=== PATIENT | female | born 1960 | race Caucasian/White ===

== ENCOUNTER 2024-09-01 16:26 | Emergency (ER) | payer MEDICAID, SELFPAY ==
[2024-09-01 16:27] VITALS: BMI 45.4
[2024-09-01 16:46] VITALS: BP 113/78; PULSE 93; RESP 18; TEMP 36.7; O2SAT 94
--- NOTE | 2024-09-01 17:26 | XR_ITS ---
Examination: PA lateral chest 2 views Technique: Upright PA lateral chest 2 views Exam date and time: September 01, 2024 1742 hrs. Indications: Intermittent chest pain shortness of breath today. Findings: Normal heart size Ectatic thoracic aorta On the lateral view there is obscuration detail posterior right hemidiaphragm consistent with early pneumonia No pulmonary edema Impression: Early pneumonia posterior basal segment right lower lobe
--- NOTE | 2024-09-01 17:26 | PD.EDRME ---
Rapid Medical Screening Exam RME Arrival date/time: 09/01/24 16:26 This is a 63-year-old female sent over by her PCP for evaluation for complaints of generalized fatigue shortness of breath and abnormal pulse ox. Reports symptoms for 1 week. I have greeted and performed a focused initial assessment of this patient. Initial appropriate labs ordered at this time. A comprehensive ED assessment and evaluation of the patient and analysis of all test and completion of medical decision making process will be conducted by additional ED provider. Chief Complaint: Shortness of Breath/Dyspnea Time Seen by Provider: 09/01/24 17:11 Vital signs: Vital Signs Temperature 98.0 F 09/01/24 16:46 Pulse Rate 93 09/01/24 16:46 Respiratory Rate 18 09/01/24 16:46 Blood Pressure 113/78 09/01/24 16:46 Pulse Oximetry (%) 94 L 09/01/24 16:46 Oxygen Delivery Method Room Air 09/01/24 16:46
[2024-09-01 18:22] LABS: Basophils # (Auto) 0.1 Thou/mm3 (0.0-0.2); Basophils % (Auto) 1 % (0-2.5); Eosinophils # (Auto) 0.3 Thou/mm3 (0.0-0.5); Eosinophils % (Auto) 3 % (0-10); Hematocrit 41.1 % (36.0-46.0); Hemoglobin 13.5 g/dL (12.0-16.0); Immature Granulocytes % (Auto) 0 % (0-0); Immature Granulocytes Auto 0.02 Thou/mm3 (0.00-0.00); Lymphocytes # (Auto) 2.2 Thou/mm3 (1.0-4.8); Lymphocytes % (Auto) 26 % (10-50); Mean Corpuscular HGB Conc 32.8 g/dl (31.0-37.0); Mean Corpuscular Hemoglobin 28.1 pg (25.0-35.0); Mean Corpuscular Volume 85 fL (80-100); Monocytes # (Auto) 0.4 Thou/mm3 (0.0-0.8); Monocytes % (Auto) 5 % (0-12); Neutrophils # (Auto) 5.4 Thou/mm3 (1.8-7.7); Neutrophils % (Auto) 64 % (37-80); Nucleated Red Blood Cell % 0 /100 WBC (0); Platelet Count 286 Thou/mm3 (140-440); RDW Standard Deviation 48.9 fL (36.4-46.3); Red Blood Count 4.81 Miln/mm3 (4.00-5.20); White Blood Count 8.4 Thou/mm3 (3.6-11.0)
[2024-09-01 18:44] LABS: B-Type Natriuretic Peptide < 20 pg/mL (0-100)
[2024-09-01 18:56] LABS: Alanine Aminotransferase 9 U/L (10-49); Albumin, Serum 4.7 gm/dL (3.4-4.8); Albumin/Globulin Ratio 1.5 (1.2-2.2); Alkaline Phosphatase 106 U/L (46-116); Anion Gap 11 (7-16); Aspartate Amino Transferase 15 U/L (0-34); BUN/Creatinine Ratio 25 Ratio (12-20); Bilirubin,Total 0.4 mg/dL (0.3-1.2); Blood Urea Nitrogen 28 mg/dL (9-23); Carbon Dioxide 20.4 mMol/L (20.0-31.0); Chloride 105 mMol/L (98-107); Creatinine (Component) 1.1 mg/dL (0.6-1.3); Estimated Creatinine Clearance 68.3 mL/min (>60); Globulin 3.2 gm/dL (2.3-3.5); Glucose 185 mg/dL (74-106); Lipase 57 U/L (12-53); Osmolality,Calculated 282 (275-295); Potassium 3.9 mMol/L (3.4-5.1); Sodium 136 mMol/L (136-145); Total Protein 7.9 gm/dL (5.7-8.2); Troponin I < 0.020 ng/mL (0.0-0.045); eGFR 56 See Note
[2024-09-01 19:26] LABS: Collection Type, Urine Clean Catch
[2024-09-01 19:58] LABS: Bilirubin,Urine Negative (Negative); Blood,Urine Negative (Negative); Clarity,Urine Clear (Clear/Hazy); Color,Urine Lt-Yellow (Lt Yel-Yel); Glucose, Urine 4+ (Negative); Ketones,Urine Negative (Negative); Leukocyte Esterase,Urine Positive (Negative); Nitrite,Urine Negative (Negative); Protein,Urine Negative (Neg - Trace); RBC,Urine 3 /hpf (0-3); Squamous Epithelial Cell,Urine 1 /hpf (0-5); Urobilinogen,Urine Negative mg/dL (0.0-1.0); WBC,Urine 15 /hpf (0-5)
--- NOTE | 2024-09-01 20:20 | EDNOTE_ITS ---
ED SOB =RME/HPI General Chief Complaint: Shortness of Breath/Dyspnea Stated Complaint: SENT BY PCP SOB WITH ACTIVITY SP02 93-94% Time Seen by Provider: 09/01/24 17:11 Arrival date/time: 09/01/24 16:26 RME / HPI RME / HPI Narrative: 63-year-old female patient with significant history of hypertension, came in for evaluation regarding generalized body weakness, shortness of breath, and hypoxia according to the patient is being satting 93 to 94% with activity. Patient denies any fever denies any cough denies any other complaints no medications taken prior travel. Related Data Home Medications ?Medication ?Instructions ?Recorded ?Confirmed hydrochlorothiazide 12.5 mg tablet 12.5 mg PO QDAY 11/16/18 05/20/20 aspirin 81 mg tablet,delayed 81 mg PO QDAY 11/10/19 05/20/20 release (Aspir-) lisinopril 20 mg tablet 20 mg PO QDAY 11/10/19 05/20/20 cyclobenzaprine 10 mg tablet 10 mg PO HS PRN Pain 05/17/20 05/20/20 ibuprofen 800 mg tablet 800 mg PO Q6H PRN Pain 05/17/20 05/20/20 Previous Rx's ?Medication ?Instructions ?Recorded amoxicillin 875 mg-potassium 1 tab PO BID #14 tabs 09/01/24 clavulanate 125 mg tablet azithromycin 250 mg tablet 250 mg PO QDAY 4 days #4 tabs 09/01/24 (Zithromax) Allergies Allergy/AdvReac Type Severity Reaction Status Date / Time ciprofloxacin [From Cipro] Allergy Severe Cramping Verified 09/01/24 16:29 of the Muscles,weakness Sulfa (Sulfonamide Allergy Verified 09/01/24 16:29 Antibiotics) Review of Systems Review of Systems Narrative Review of Systems: 63-year-old female patient with significant history of hypertension, came in for evaluation regarding generalized body weakness, shortness of breath, and hypoxia according to the patient is being satting 93 to 94% with activity. Patient denies any fever denies any cough denies any other complaints no medications taken prior travel. ED Exam Narrative Physical exam: VITAL SIGNS: Reviewed. GENERAL APPEARANCE: Alert and interactive, follows commands, no acute distress, HEAD AND FACE: Non-traumatic. ENT: PERRL, pink conjunctivitis, eyelid no trauma, Mucous membrane moist. NECK: Supple, nontender, no nuchal rigidity. CHEST: No tenderness, no crepitus, no paradoxical movement, no retractions. LUNGS: Clear, well ventilated, symmetric, no rales, no wheezing, no ronchi, no stridor, good breath sounds bilaterally. HEART: Regular rate, regular rhythm, no murmur, no gallops. ABDOMEN: Soft, positive bowel sounds, nondistended, no guarding, nontender, no rebound, no masses, RECTAL: Deferred. GENITAL: Deferred. NEUROLOGICAL: Gross motor function intact sensory function intact, Appropriate for age. MUSCULOSKELETAL: low back nontender, full range of motion. EXTREMITIES: Nontender, full range of motion. SKIN: Color pink, dry, no rash, no lacerations, no abrasions, no contusions. LYMPHATICS: Deferred. Course Quality Measures none Orders Category Date Time Status Bedside Influenza A&B Antigen Test NOW Care 09/01/24 17:26 Active EKG (ED ONLY) *Do not use* NOW Care 09/01/24 17:26 Completed NPO STAT Care 09/01/24 17:26 Active EKG (ED Only) Stat Exams 09/01/24 17:26 Ordered XR chest 2V Stat Exams 09/01/24 17:26 Completed BNP [B-Type Natriuretic Peptide] Stat Lab 09/01/24 18:08 Completed CBC Stat Lab 09/01/24 18:08 Completed Comprehensive Metabolic Panel Stat Lab 09/01/24 18:08 Completed Lipase Stat Lab 09/01/24 18:08 Completed Troponin I Stat Lab 09/01/24 18:08 Completed Urinalysis Stat Lab 09/01/24 19:03 Completed Azithromycin Po [Zithromax PO] Med 09/01/24 20:17 Discontinued 500 mg PO X1 ONE Vital Signs Vital signs: Vital Signs Temperature 98.0 F 09/01/24 16:46 Pulse Rate 93 09/01/24 16:46 Respiratory Rate 18 09/01/24 16:46 Blood Pressure 113/78 09/01/24 16:46 Pulse Oximetry (%) 94 L 09/01/24 16:46 Oxygen Delivery Method Room Air 09/01/24 16:46 Shortness of Breath / Dyspnea MDM Narrative MDM Narrative:: 63-year-old female patient with significant history of hypertension, came in for evaluation regarding generalized body weakness, shortness of breath, and hypoxia according to the patient is being satting 93 to 94% with activity. Patient denies any fever denies any cough denies any other complaints no medications taken prior travel. Patient's workup is significant for pneumonia review of system reviewed and within normal limits except mentioned in HPI unremarkable. Results discussed with the patient. Patient was given first dose of Zithromax in the ED. Currently satting 94%. Patient data External records reviewed:: None Clinical information provided by:: patient Social determinants that could affect healthcare access:: none Patient has the following chronic illnesses:: Hypertension How is presenting disease/condition affected by chronic disease/condition?: exacerbated by Evaluation data The following diagnostics were reviewed and interpreted by me:: lab results and radiology exam(s) Lab and/or radiology exams considered but not ordered:: Plan Interpretation Summary: Chest x-ray showed pneumonia, there is of the labs unremarkable. Medications / Prescriptions Medications or Prescriptions considered but not ordered:: None Medication administrations:: Medication Administration History Discontinued Medications Azithromycin (Azithromycin 250 Mg Tablet) 500 mg PO X1 ONE Stop: 09/01/24 20:18 Zithromax Consultations Consultation(s) initiated? (list below): No Diagnosis Shortness of Breath Differential Diagnosis: acute exacerbation of chronic obstructive airways disease, congestive heart failure and community acquired pneumonia Most likely diagnosis given after review of the tests above:: Pneumonia, shortness of breath Admission Indicated Admission indicated?: not indicated Explain why admission is indicated or not indicated:: Stable Admission Request Was there a request for admission?: No Disposition Plan Disposition Plan: Discharge Discharge Attestation Discharge Attestation: The patient and all family members were given an opportunity to ask questions and understood the discharge instructions. Discharge instructions specifically effects, indications for sooner follow up or return to the emergency department, and the expected course of current diagnosis. Patient condition: Stable Discharge Plan Plan Patient Disposition: HOME (Self Care) Disposition Comment: stable Prescriptions/Referrals Prescriptions/Med Rec: New azithromycin [Zithromax] 250 mg tablet 250 mg PO QDAY 4 Days Qty: 4 0RF Rx Instructions: start on day 2 of therapy amoxicillin-pot clavulanate 875-125 mg tablet 1 tab PO BID Qty: 14 0RF No Action cyclobenzaprine 10 mg Tablet 10 mg PO HS PRN (Reason: Pain) ibuprofen 800 mg Tablet 800 mg PO Q6H PRN (Reason: Pain) hydrochlorothiazide 12.5 mg Tablet 12.5 mg PO QDAY lisinopril 20 mg Tablet 20 mg PO QDAY aspirin [Aspir-81] 81 mg Tablet,Delayed Release (Dr/Ec) 81 mg PO QDAY Referrals: Yamileth Gonzalez, [facility] [facility] [Primary Care Provider] - In 1 week Problem List Clinical Impression: Shortness of breath, Pneumonia Patient/Caregiver Discharge Instructions Discharge Activity: activity as tolerated Education Materials: ED Pneumonia (Adult) Additional Instructions: Thank you for the opportunity for serving you today. You are stable for discharged . You are advised to: Follow-up with your PCP in 1 to 2 days Return to ED for worsening of symptoms Increase oral fluids Take medication as prescribed Print Language: Icelandic Stand Alone Forms: Shirley Award Info., Patient Portal Info Letter PA/CAPO Supervising Physician JEFF/CAPO Supervising Physician: MD carlos manuel
[2024-09-01] MEDS: AZITHROMYCIN 250 MG TABLET 500 MG PO (20:23)
== END 2024-09-01 20:28 | disposition home or self-care (01) ==
PROVIDERS: Nurse Practitioner Primary Care; Emergency Provider Emergency Medicine; PCP Nurse Practitioner Women's Health
DX: J18.9 Pneumonia, unspecified organism (principal)
CPT/HCPCS: 36415; 71046; 80053; 81001; 83690; 83880; 84484; 85025; 87400; 93005; 99283; A9270

== ENCOUNTER → 2024-09-04 | Outpatient (CLI) | payer MEDICAID, SELFPAY ==
--- NOTE | 2024-09-04 08:30 | XR_ITS ---
Examination: Diagnostic digital mammography, unilateral, left Computer aided detection 3-D breast Tomosynthesis, unilateral Date and time of exam: September 04, 2024 0838 hours INDICATIONS: Mammogram March 02, 2024 10 mm mass 3:00 position left breast Technique: Nonmagnified MLO, CC views of the left breast have been obtained, reconstructed from 3-D Tomosynthesis images. R2 computer aided detection program utilized for evaluation of suspicious masses and/or abnormal calcifications. 3-D Tomosynthesis images obtained. Findings: Scattered areas of fibroglandular density No suspicious mass currently depicted Impression: BI-RADS category 0: Incomplete: Need additional imaging evaluation Recommend repeat left breast sonography to compare with the March 02, 2024 exam, indicating circumscribed 11 mm mass 3:00 position left breast
== END | disposition home or self-care (01) ==
LOC: CDIM 08:22
PROVIDERS: Referring Provider Family Medicine; Visit Provider Family Medicine
DX: R92.8 Other abnormal and inconclusive findings on diagnostic imaging of breast (principal); N63.25 Unspecified lump in the left breast, overlapping quadrants
CPT/HCPCS: 77061; 77065; G0279

== ENCOUNTER 2024-10-01 08:57 | Emergency (ER) | payer MEDICAID, SELFPAY ==
[2024-10-01 09:10] VITALS: BP 157/91; PULSE 80; RESP 18; TEMP 36.5; O2SAT 95; BMI 47.4
--- NOTE | 2024-10-01 09:15 | XR_ITS ---
Examination: PA lateral chest 2 views Technique: Upright PA lateral chest 2 views Exam date and time: October 01, 2024 0930 hrs. Comparison September 01, 2024 Indications: Coughing flulike symptoms today. Findings: Normal heart size Mild increased AP dimension chest No lobar pneumonia No pulmonary edema Impression: No lobar pneumonia
--- NOTE | 2024-10-01 09:15 | PD.EDRME ---
Rapid Medical Screening Exam [facility] Arrival date/time: 10/01/24 08:57 63-year-old female presents to the emergency department today complains of cough, congestion, body aches patient recently treated for pneumonia Chief Complaint: Flu Like Symptoms Time Seen by Provider: 10/01/24 09:05 Vital signs: Vital Signs Temperature 97.7 F 10/01/24 09:10 Pulse Rate 80 10/01/24 09:10 Respiratory Rate 18 10/01/24 09:10 Blood Pressure 157/91 H 10/01/24 09:10 Pulse Oximetry (%) 95 10/01/24 09:10 Oxygen Delivery Method Room Air 10/01/24 09:10
[2024-10-01 10:41] LABS: Collection Type, Urine Clean Catch
[2024-10-01 10:56] LABS: Basophils # (Auto) 0.1 Thou/mm3 (0.0-0.2); Basophils % (Auto) 1 % (0-2.5); Eosinophils # (Auto) 0.3 Thou/mm3 (0.0-0.5); Eosinophils % (Auto) 5 % (0-10); Hematocrit 40.9 % (36.0-46.0); Hemoglobin 13.6 g/dL (12.0-16.0); Immature Granulocytes % (Auto) 0 % (0-0); Immature Granulocytes Auto 0.02 Thou/mm3 (0.00-0.00); Lymphocytes % (Auto) 28 % (10-50); Mean Corpuscular HGB Conc 33.3 g/dl (31.0-37.0); Mean Corpuscular Hemoglobin 28.6 pg (25.0-35.0); Mean Corpuscular Volume 86 fL (80-100); Monocytes # (Auto) 0.4 Thou/mm3 (0.0-0.8); Monocytes % (Auto) 5 % (0-12); Neutrophils # (Auto) 4.2 Thou/mm3 (1.8-7.7); Neutrophils % (Auto) 61 % (37-80); Nucleated Red Blood Cell % 0 /100 WBC (0); Platelet Count 280 Thou/mm3 (140-440); RDW Standard Deviation 47.8 fL (36.4-46.3); Red Blood Count 4.75 Miln/mm3 (4.00-5.20); White Blood Count 6.9 Thou/mm3 (3.6-11.0)
[2024-10-01 11:04] LABS: Bilirubin,Urine Negative (Negative); Blood,Urine Negative (Negative); Color,Urine Lt-Yellow (Lt Yel-Yel); Glucose, Urine Negative (Negative); Ketones,Urine Negative (Negative); Leukocyte Esterase,Urine Positive (Negative); Nitrite,Urine Positive (Negative); Protein,Urine Negative (Neg - Trace); RBC,Urine 3 /hpf (0-3); Specific Gravity,Urine 1.016 (1.001-1.035); Squamous Epithelial Cell,Urine 1 /hpf (0-5); Urobilinogen,Urine Negative mg/dL (0.0-1.0); WBC,Urine 19 /hpf (0-5)
[2024-10-01 11:15] LABS: Alanine Aminotransferase < 7 U/L (10-49); Albumin, Serum 4.6 gm/dL (3.4-4.8); Albumin/Globulin Ratio 1.5 (1.2-2.2); Alkaline Phosphatase 119 U/L (46-116); Anion Gap 9 (7-16); Aspartate Amino Transferase 11 U/L (0-34); BUN/Creatinine Ratio 23 Ratio (12-20); Bilirubin,Total 0.5 mg/dL (0.3-1.2); Blood Urea Nitrogen 16 mg/dL (9-23); Calcium 10.3 mg/dL (8.3-10.6); Calcium (Corrected) 10.3 mg/dL (8.5-10.1); Carbon Dioxide 24.9 mMol/L (20.0-31.0); Chloride 105 mMol/L (98-107); Creatinine (Component) 0.7 mg/dL (0.6-1.3); Estimated Creatinine Clearance 106.3 mL/min (>60); Globulin 3.1 gm/dL (2.3-3.5); Glucose 217 mg/dL (74-106); Osmolality,Calculated 285 (275-295); Potassium 4.4 mMol/L (3.4-5.1); Sodium 139 mMol/L (136-145); Total Protein 7.7 gm/dL (5.7-8.2); Troponin I < 0.020 ng/mL (0.0-0.045); eGFR > 60 See Note
[2024-10-01 11:36] LABS: Culture Indicated,Urine Yes
[2024-10-01 11:37] LABS: Bacteria,Urine 2+
[2024-10-01 11:38] LABS: Clarity,Urine Hazy (Clear/Hazy)
--- NOTE | 2024-10-01 15:59 | PD.EDADULT ---
ED General RME/HPI General Chief complaint: Flu Like Symptoms Stated complaint: COUGH, WEAKNESS; PNEUMONIA 2 WKS AGO W/ABX Time Seen by Provider: 10/01/24 09:05 Arrival date/time: 10/01/24 08:57 CC: Cough body aches treated for pneumonia 3 weeks ago but states he got better and then worsened in the past 5 days. Patient denies shortness of breath or difficulty breathing. No chest pain. RME / HPI RME / HPI narrative: 10/01/24 08:57 63-year-old female presents to the emergency department today complains of cough, congestion, body aches patient recently treated for pneumonia Related Data Home Medications ?Medication ?Instructions ?Recorded ?Confirmed hydrochlorothiazide 12.5 mg tablet 12.5 mg PO QDAY 11/16/18 05/20/20 aspirin 81 mg tablet,delayed 81 mg PO QDAY 11/10/19 05/20/20 release (Aspir-) lisinopril 20 mg tablet 20 mg PO QDAY 11/10/19 05/20/20 cyclobenzaprine 10 mg tablet 10 mg PO HS PRN Pain 05/17/20 05/20/20 ibuprofen 800 mg tablet 800 mg PO Q6H PRN Pain 05/17/20 05/20/20 Previous Rx's ?Medication ?Instructions ?Recorded amoxicillin 875 mg-potassium 1 tab PO BID #14 tabs 09/01/24 clavulanate 125 mg tablet Allergies Allergy/AdvReac Type Severity Reaction Status Date / Time ciprofloxacin [From Cipro] Allergy Severe Cramping Verified 10/01/24 08:59 of the Muscles,weakness Sulfa (Sulfonamide Allergy Verified 10/01/24 08:59 Antibiotics) Review of Systems Review of Systems Narrative Review of Systems: GEN: No fever, no chills, no weight loss,+ body aches EYES: No discharge, no visual changes, no pain HEENT: No ear pain, no congestion, no sore throat PULM: No shortness of breath, + cough, no congestion CV: No chest pain, no dyspnea on exertion, no palpitations GI: No nausea, no vomiting, no diarrhea, no pain, no constipation : No frequency, no urgency, no dysuria MUSC/SKEL: No joint pain, no back pain SKIN: No rash PSYCH: No hallucinations, no depression HEME/LYMPH: No easy bleeding or bruising tendencies NEURO: No weakness, no headache Past Medical History Past Medical History NEUROLOGIC: Negative Neurological Disorders or Seizures CARDIAC: Positive Cardiac Disorders and Hypertension (TAKES MED); Negative Congestive Heart Failure, Edema, Cellulitis or Varicose Veins RESPIRATORY: Positive Sleep Apnea (STOP 2017); Negative Chronic Obstructive Pulmonary Disease (COPD), Pneumonia or Tuberculosis GASTROINTESTINAL: Positive Gastrointestinal Disorders, Gall Bladder Disease (OPEN) and Gastroesophageal Reflux Disease (HISTORY); Negative Hepatitis GENITOURINARY: Negative Genitourinary Disorders or Renal Disease REPRODUCTIVE: Positive Previous Pregnancies (x4) MUSCULOSKELETAL: Positive Musculoskeletal Disorders, Arthritis and Fibromyalgia ENDOCRINE: Positive Endocrine Disorders and Diabetes Mellitus Type 2 (STOP 2019); Negative Diabetes Mellitus Type 1 HEMATOLOGIC: Negative Blood Disorders OTHER HISTORY: Positive Hospitalization ([facility] 2016 [facility]) and Chicken Pox; Negative Autoimmune Disease, Shingles, Falls, Blood Transfusions, Blood Transfusion Reaction, Anesthesia Reactions, Chemotherapy, Radiation Therapy, MRSA, Measles, Mumps or Cancer Family History FAMILY HISTORY: Positive Family Cardiac Disorders (FATHER,MOTHER (HTN,PR)), Family Cancer (MOTHER (UTERINE)) and Family Surgery (MOTHER,FATHER,SISTER); Negative Family Psychiatric Problems, Family Respiratory Disorders, Family Gastrointestinal Problems or Family Anesthesia Reaction Surgical History SURGICAL: Positive Tubal Ligation and Section (x4); Negative Pacemaker Social History SMOKING STATUS: Never smoker ED Exam Narrative Physical exam: [General: Obese not in any acute distress Head normocephalic HEENT: Within acceptable limits Neck is supple nontender Chest equal chest rise nontender to palpation Respiratory: Clear to auscultation no wheezes crackles or rubs CV: Rate rhythm is regular no murmurs rubs or clicks Abdomen is distended secondary to body habitus soft nontender no masses positive bowel sounds all 4 quadrants Back: No CVA tenderness no spinous process tenderness from cervical spine thoracic and lumbar spine Skin: Intact no petechiae rash induration ulceration or crepitus Extremities: Moving all extremity against resistance cap refill less than 2 seconds neurosensory intact Neuro: Awake alert oriented x3 Glascow coma 15 no focal deficits] Course Quality Measures none Orders Category Date Time Status Bedside Influenza A&B Antigen Test NOW Care 10/01/24 09:14 Completed XR chest 2V Stat Exams 10/01/24 09:15 Completed CBC Stat Lab 10/01/24 10:18 Completed Comprehensive Metabolic Panel Stat Lab 10/01/24 10:18 Completed Troponin I Stat Lab 10/01/24 10:18 Completed UA, C/S IF [Urinalysis, C/S if Indicated] Stat Lab 10/01/24 09:36 Completed Urine Culture Stat Lab 10/01/24 09:36 Received Vital Signs Vital signs: Vital Signs Temperature 97.7 F 10/01/24 09:10 Pulse Rate 80 10/01/24 09:10 Respiratory Rate 18 10/01/24 09:10 Blood Pressure 157/91 H 10/01/24 09:10 Pulse Oximetry (%) 95 10/01/24 09:10 Oxygen Delivery Method Room Air 10/01/24 09:10 [facility] Patient data External records reviewed:: [facility] previous records Clinical information provided by:: patient Social determinants that could affect healthcare access:: none Patient has the following chronic illnesses:: Hypertension How is presenting disease/condition affected by chronic disease/condition?: uneffected by Evaluation data The following diagnostics were reviewed and interpreted by me:: lab results and radiology exam(s) Lab and/or radiology exams considered but not ordered:: Influenza a positive CBC shows no acute leukocytosis anemia thrombocytopenia CMP shows no acute electrolyte imbalances, other than a glucose of 217, no renal impairment transaminitis or T. bili elevation Urine shows 19 WBCs 2+ bacteria leukocyte Estrace positive however this is decreased from the last 3 urines. Patient displays no UTI type symptoms. Interpretation Summary: Influenza A positive Medications Medications considered but not ordered:: None Medication administrations:: None Consultations Consultation(s) initiated? (list below): No Diagnosis Differential Diagnosis ED Complaint MDM: Influenza COVID UTI Most likely diagnosis given after review of the tests above:: Influenza A Admission Indicated Admission indicated?: not indicated Explain why admission is indicated or not indicated:: Stable for outpatient follow-up Admission Request Was there a request for admission?: No Admission Attestation Admission request attestation: None Disposition Plan Disposition Plan: Discharge Discharge Attestation Discharge Attestation: The patient and all family members were given an opportunity to ask questions and understood the discharge instructions. Discharge instructions specifically effects, indications for sooner follow up or return to the emergency department, and the expected course of current diagnosis. Patient condition: Stable Medical Decision Making Differential Diagnosis Differential Diagnosis: Influenza COVID UTI Lab Data 10/01/24 10:18 10/01/24 10:18 Labs: Lab Results 10/01/24 10/01/24 Range/Units 09:36 10:18 WBC 6.9 (3.6-11.0) Thou/mm3 RBC 4.75 (4.00-5.20) Miln/mm3 Hgb 13.6 (12.0-16.0) g/dL Hct 40.9 (36.0-46.0) % MCV 86 (80-100) fL MCH 28.6 (25.0-35.0) pg MCHC 33.3 (31.0-37.0) g/dl RDW Std Deviation 47.8 H (36.4-46.3) fL Plt Count 280 (140-440) Thou/mm3 Neut % (Auto) 61 (37-80) % Lymph % (Auto) 28 (10-50) % Walker % (Auto) 5 (0-12) % Eos % (Auto) 5 (0-10) % Baso % (Auto) 1 (0-2.5) % Neut # (Auto) 4.2 (1.8-7.7) Thou/mm3 Lymph # (Auto) 2.0 (1.0-4.8) Thou/mm3 Walker # (Auto) 0.4 (0.0-0.8) Thou/mm3 Eos # (Auto) 0.3 (0.0-0.5) Thou/mm3 Baso # (Auto) 0.1 (0.0-0.2) Thou/mm3 Immature Gran # (Auto) 0.02 H (0.00-0.00) Thou/mm3 Absolute Nucleated RBC 0.00 (0.00-0.00) Thou/mm3 Immature Gran % 0 (0-0) % Nucleated RBC % 0 (0) /100 WBC Sodium 139 (136-145) mMol/L Potassium 4.4 (3.4-5.1) mMol/L Chloride 105 (98-107) mMol/L Carbon Dioxide 24.9 (20.0-31.0) mMol/L Anion Gap 9 (7-16) BUN 16 (9-23) mg/dL Creatinine 0.7 (0.6-1.3) mg/dL Estim Creat Clear Calc 106.3 (>60) mL/min eGFR > 60 (60 - ) See Note BUN/Creatinine Ratio 23 H (12-20) Ratio Glucose 217 H (74-106) mg/dL Calculated Osmolality 285 (275-295) Calcium 10.3 (8.3-10.6) mg/dL Corrected Calcium 10.3 H (8.5-10.1) mg/dL Total Bilirubin 0.5 (0.3-1.2) mg/dL AST 11 (0-34) U/L ALT < 7 L (10-49) U/L Alkaline Phosphatase 119 H (46-116) U/L Troponin I < 0.020 (0.0-0.045) ng/mL Total Protein 7.7 (5.7-8.2) gm/dL Albumin 4.6 (3.4-4.8) gm/dL Globulin 3.1 (2.3-3.5) gm/dL Albumin/Globulin Ratio 1.5 (1.2-2.2) Ur Collection Type Clean Catch Urine Color Lt-Yellow (Lt Yel-Yel) Urine Clarity Hazy (Clear/Hazy) Urine pH 7.0 (5.0-7.0) Ur Specific [place] 1.016 (1.001-1.035) Urine Protein Negative (Neg - Trace) Urine Glucose (UA) Negative (Negative) Urine Ketones Negative (Negative) Urine Blood Negative (Negative) Urine Nitrite Positive (Negative) Urine Bilirubin Negative (Negative) Urine Urobilinogen (Auto) Negative (0.0-1.0) mg/dL Ur Leukocyte Esterase Positive (Negative) Urine RBC 3 (0-3) /hpf Urine WBC 19 H (0-5) /hpf Ur Squamous Epith Cells 1 (0-5) /hpf Urine Bacteria 2+ A (None) Ur Culture Indicated? Yes Discharge Plan Plan Patient Disposition: HOME (Self Care) Patient condition on transfer: Stable Prescriptions/Referrals Prescriptions/Med Rec: No Action cyclobenzaprine 10 mg Tablet 10 mg PO HS PRN (Reason: Pain) ibuprofen 800 mg Tablet 800 mg PO Q6H PRN (Reason: Pain) hydrochlorothiazide 12.5 mg Tablet 12.5 mg PO QDAY lisinopril 20 mg Tablet 20 mg PO QDAY aspirin [Aspir-81] 81 mg Tablet,Delayed Release (Dr/Ec) 81 mg PO QDAY amoxicillin-pot clavulanate 875-125 mg tablet 1 tab PO BID Qty: 14 0RF Referrals: No Primary/Family,Physician [Primary Care Provider] - In 1 week Enoc Gray MD [Physician] - In 1 week Problem List Clinical Impression: Influenza A Patient/Caregiver Discharge Instructions Education Materials: ED Influenza (Adult) Print Language: Serbian Stand Alone Forms: Shirley Award Info., Patient Portal Info Letter PA/LEAD BASED PAINT TECHNICIAN Supervising Physician PA/LEAD BASED PAINT TECHNICIAN Supervising Physician: Navneet Evans ENP
== END 2024-10-01 16:40 | disposition home or self-care (01) ==
PROVIDERS: Nurse Practitioner Primary Care; Emergency Provider Emergency Medicine
DX: J10.1 Influenza due to other identified influenza virus with other respiratory manifestations (principal)
CPT/HCPCS: 36415; 71046; 80053; 81001; 84484; 85025; 87077; 87086; 87186; 87400; 99283

== ENCOUNTER 2025-02-22 00:37 | Emergency (ER) | payer MEDICAID, SELFPAY ==
[2025-02-22 00:38] VITALS: BMI 45.7
[2025-02-22 01:07] VITALS: BP 142/83; PULSE 78; RESP 20; TEMP 36.9; O2SAT 95
--- NOTE | 2025-02-22 01:20 | PD.EDCHEST ---
ED Chest Pain RME/HPI General Chief Complaint: Chest Pain Stated Complaint: BILATERAL SHOULDER, BACK AND CHEST PAIN Time Seen by Provider: 02/22/25 00:52 Arrival date/time: 02/22/25 00:37 RME / HPI RME / HPI narrative: Dr. Esteves?s Main ED Evaluation: 64yo female with a history of DM presents to the ED for a chief complaint of chest pain. Patient states she started having left shoulder pain that radiates down her arm tonight. Patient reports associated chest pain that worsens when she takes a deep breathe and chronic neck pain. Patient subsequently complains of feeling lightheaded and generally weak for the last few days, reporting associated dysuria that started today. Patient denies any fever, chills or any other associated symptoms. Denies any recent travel. Denies any tobacco, alcohol or illicit drug use. Related Data Home Medications ?Medication ?Instructions ?Recorded ?Confirmed hydrochlorothiazide 12.5 mg tablet 12.5 mg PO QDAY 11/16/18 05/20/20 aspirin 81 mg tablet,delayed 81 mg PO QDAY 11/10/19 05/20/20 release (Aspir-) lisinopril 20 mg tablet 20 mg PO QDAY 11/10/19 05/20/20 cyclobenzaprine 10 mg tablet 10 mg PO HS PRN Pain 05/17/20 05/20/20 ibuprofen 800 mg tablet 800 mg PO Q6H PRN Pain 05/17/20 05/20/20 Previous Rx's ?Medication ?Instructions ?Recorded amoxicillin 875 mg-potassium 1 tab PO BID #14 tabs 09/01/24 clavulanate 125 mg tablet Allergies Allergy/AdvReac Type Severity Reaction Status Date / Time ciprofloxacin (From Cipro) Allergy Severe Cramping Verified 10/01/24 08:59 of the Muscles,weakness Sulfa (Sulfonamide Allergy Verified 10/01/24 08:59 Antibiotics) Review of Systems Review of Systems Systems Reviewed: All systems reviewed, normal except as documented Past Medical History Past Medical History NEUROLOGIC: Negative Neurological Disorders or Seizures CARDIAC: Positive Cardiac Disorders and Hypertension (TAKES MED); Negative Congestive Heart Failure, Edema, Cellulitis or Varicose Veins RESPIRATORY: Positive Sleep Apnea (STOP 2017); Negative Chronic Obstructive Pulmonary Disease (COPD), Pneumonia or Tuberculosis GASTROINTESTINAL: Positive Gastrointestinal Disorders, Gall Bladder Disease (OPEN) and Gastroesophageal Reflux Disease (HISTORY); Negative Hepatitis GENITOURINARY: Negative Genitourinary Disorders or Renal Disease REPRODUCTIVE: Positive Previous Pregnancies (x4) MUSCULOSKELETAL: Positive Musculoskeletal Disorders, Arthritis and Fibromyalgia ENDOCRINE: Positive Endocrine Disorders and Diabetes Mellitus Type 2 (STOP 2019); Negative Diabetes Mellitus Type 1 HEMATOLOGIC: Negative Blood Disorders OTHER HISTORY: Positive Hospitalization ([facility] 2016 [facility]) and Chicken Pox; Negative Autoimmune Disease, Shingles, Falls, Blood Transfusions, Blood Transfusion Reaction, Anesthesia Reactions, Chemotherapy, Radiation Therapy, MRSA, Measles, Mumps or Cancer Family History FAMILY HISTORY: Positive Family Cardiac Disorders (FATHER,MOTHER (HTN,LA)), Family Cancer (MOTHER (UTERINE)) and Family Surgery (MOTHER,FATHER,SISTER); Negative Family Psychiatric Problems, Family Respiratory Disorders, Family Gastrointestinal Problems or Family Anesthesia Reaction Surgical History SURGICAL: Positive Tubal Ligation and Section (x4); Negative Pacemaker Social History SMOKING STATUS: Never smoker ED Exam Narrative Physical exam: GEN. APPEARANCE: The patient is alert awake oriented X-3 in no distress, sitting in the chair, appears chronically ill. Patient has good eye contact. Patient is cooperative. VITALS: All vitals were reviewed and the pulse ox is 95% on room air which is normal according to my interpretation. HEENT: Normocephalic, atraumatic. Pupils are equal and reactive. Oral mucosa is moist. Patent Nares NECK: Supple, nontender, no thyromegaly, no meningismus, no JVD, FROM of the neck without any swelling, edema or midline tenderness, no swelling CHEST: Symmetrical, atraumatic, and with equal expansion , Nontender on palpation no deformity and no crepitus. CARDIOVASCULAR: Heart regular rhythm no murmur or gallop rub or extra beats. LUNGS: Clear to auscultation bilaterally with symmetrical chest rise. No laboring tachypnea or wheezing. No intercostal subcostal retraction. No rales and no rhonchi. ABDOMEN: Soft, flat, nontender to palpation, no guarding or rebound tenderness. There are no abnormal masses palpated. Active and normal bowel sounds. EXTREMITIES: Nontender. No edema. No cyanosis. Symmetric pulses to the BUE. Patient is able to move all 4 extremities well, with full ROM and good CSM. SKIN: Warm and dry, no jaundice or rashes noted. NEURO: Patient is HOWARD x 4, Cranial nerves II through XII grossly intact. There is no focal neurologic deficits noted. GCS is 15, PNS and BACKGROUND CHECK COORDINATOR appear grossly intact. PSYCHIATRIC: Patient is in normal mood and affect. Course Quality Measures none Orders Category Date Time Status EKG (ED ONLY) *Do not use* NOW Care 02/22/25 01:24 Completed CXR2 [XR chest 2V] Stat Exams 02/22/25 01:24 Taken EKG (ED Only) Stat Exams 02/22/25 01:24 Draft BNP [B-Type Natriuretic Peptide] Stat Lab 02/22/25 02:03 Completed CBC Stat Lab 02/22/25 02:03 Completed CMP [Comprehensive Metabolic Panel] Stat Lab 02/22/25 02:03 Completed Troponin I Stat Lab 02/22/25 02:03 Completed Troponin I Stat Lab 02/22/25 04:48 Completed UA, C/S IF [Urinalysis, C/S if Indicated] Stat Lab 02/22/25 06:26 Ordered Aspirin Chew Med 02/22/25 01:24 Discontinued 81 mg PO X1 ONE Lidocaine 5% Patch Med 02/22/25 01:26 Discontinued 1 patch TOP X1 ONE Vital Signs Vital signs: Vital Signs Temperature 98.4 F 02/22/25 01:07 Pulse Rate 78 02/22/25 01:07 Respiratory Rate 20 02/22/25 01:07 Blood Pressure 142/83 H 02/22/25 01:07 Pulse Oximetry (%) 95 02/22/25 01:07 Oxygen Delivery Method Room Air 02/22/25 01:07 Chest Pain MDM Narrative MDM Narrative:: Scribe Attestation: 02/22/25 - Janeen Patel am scribing for and in the presence of Dr. Esteves. Patient data External records reviewed:: [facility] previous records (Per chart review, patient was seen here on 10/01/24 for influenza.) Clinical information provided by:: patient Social determinants that could affect healthcare access:: none Patient has the following chronic illnesses:: DM How is presenting disease/condition affected by chronic disease/condition?: uneffected by Evaluation data The following diagnostics were reviewed and interpreted by me:: lab results, radiology exam(s) and EKG tracing(s) Lab and/or radiology exams considered but not ordered:: none Interpretation Summary: WBC 12.7, Glucose 349, Troponin normal , BNP normal. Repeat troponin is normal. CXR shows no pleural effusions, no infiltrates, no consolidations, according to my interpretation. EKG done at 0126, NSR, rate of 78, normal intervals, nonspecific ST-T changes, no acute ischemia, according to my interpretation. Patient requesting that we test to urine and call her back with the results. Patient does not want to stay for the results. Patient is hemodynamically stable no distress Medications / Prescriptions Medications or Prescriptions considered but not ordered:: none Medication administrations:: Medication Administration History Discontinued Medications Aspirin (Aspirin 81 Mg Chew) 81 mg PO X1 ONE Stop: 02/22/25 01:25 Last Admin: 02/22/25 01:39 Dose: 81 mg Documented By: SHORTY Lidocaine (Lidocaine 5% 1 Patch) 1 patch TOP X1 ONE Stop: 02/22/25 01:27 Last Admin: 02/22/25 01:39 Dose: 1 patch Documented By: SHORTY see above Consultations Consultation(s) initiated? (list below): No Diagnosis Chest Pain Differential Diagnosis: stable angina, unstable angina pectoris and other (ACS, STEMI, NSTEMI, electrolyte abnormality) Most likely diagnosis given after review of the tests above:: see clinical impression below Admission Indicated Admission indicated?: not indicated Admission Request Was there a request for admission?: No Disposition Plan Disposition Plan: Discharge Discharge Attestation Discharge Attestation: The patient and all family members were given an opportunity to ask questions and understood the discharge instructions. Discharge instructions specifically effects, indications for sooner follow up or return to the emergency department, and the expected course of current diagnosis. Patient condition: Stable Discharge Plan Plan Patient Disposition: HOME (Self Care) Prescriptions/Referrals Prescriptions/Med Rec: No Action cyclobenzaprine 10 mg Tablet 10 mg PO HS PRN (Reason: Pain) ibuprofen 800 mg Tablet 800 mg PO Q6H PRN (Reason: Pain) hydrochlorothiazide 12.5 mg Tablet 12.5 mg PO QDAY lisinopril 20 mg Tablet 20 mg PO QDAY aspirin [Aspir-81] 81 mg Tablet,Delayed Release (Dr/Ec) 81 mg PO QDAY amoxicillin-pot clavulanate 875-125 mg tablet 1 tab PO BID Qty: 14 0RF Referrals: Enoc Gray MD [Primary Care Provider] - In 1 week Problem List Clinical Impression: Chest pain, Neck and shoulder pain Patient/Caregiver Discharge Instructions Education Materials: Exercises Shoulder Flexibility, ED Chest Pain, Noncardiac Additional Instructions: It is important that you discuss your symptoms with your primary care doctor, you may benefit from a child welfare worker evaluation, stress test and an echo as an outpatient. Print Language: Setswana Stand Alone Forms: Shirley Award Info., Patient Portal Info Letter
--- NOTE | 2025-02-22 01:24 | XR_ITS ---
Examination: PA lateral chest 2 views TECHNIQUE: Upright PA lateral chest 2 views Date and time: February 22, 2025 0147 hours INDICATIONS: Left shoulder pain radiating down the left arm tonight FINDINGS: Opacity left base obscuring detail left hemidiaphragm Regular and clear Normal heart size Impression : Early pneumonia left base
--- NOTE | 2025-02-22 01:24 | EKG_ITS ---
[facility] Test Date: 2025-02-22 Pat Name: DEANA ANNA Department: Room: - Gender: Female [employer]: : [id number] Requested By: Phoebe Barnes Order Number: [id number] Reading MD: Phoebe Barnes Measurements Intervals [place] Rate: 78 P: 19 [place]: 154 QRS: -6 QRSD: 90 T: 36 QT: 351 QTc: 401 Interpretive Statements SINUS RHYTHM NONSPECIFIC T-WAVE ABNORMALITY Compared to ECG 05/17/2020 14:13:25 No significant changes /[id number]/[email or web address]/[id number].pdf
[2025-02-22] MEDS: LIDOCAINE 5% 1 PATCH TOP (01:39)
[2025-02-22] MEDS: ASPIRIN 81 MG CHEW PO (01:39)
[2025-02-22 02:37] LABS: Basophils # (Auto) 0.1 Thou/mm3 (0.0-0.2); Basophils % (Auto) 1 % (0-2.5); Eosinophils # (Auto) 0.3 Thou/mm3 (0.0-0.5); Eosinophils % (Auto) 2 % (0-10); Hematocrit 36.8 % (36.0-46.0); Hemoglobin 12.5 g/dL (12.0-16.0); Immature Granulocytes % (Auto) 0 % (0-0); Immature Granulocytes Auto 0.04 Thou/mm3 (0.00-0.00); Lymphocytes # (Auto) 1.8 Thou/mm3 (1.0-4.8); Lymphocytes % (Auto) 15 % (10-50); Mean Corpuscular Hemoglobin 28.9 pg (25.0-35.0); Mean Corpuscular Volume 85 fL (80-100); Monocytes # (Auto) 0.8 Thou/mm3 (0.0-0.8); Monocytes % (Auto) 7 % (0-12); Neutrophils # (Auto) 9.6 Thou/mm3 (1.8-7.7); Neutrophils % (Auto) 76 % (37-80); Nucleated Red Blood Cell % 0 /100 WBC (0); Platelet Count 269 Thou/mm3 (140-440); Red Blood Count 4.33 Miln/mm3 (4.00-5.20); White Blood Count 12.7 Thou/mm3 (3.6-11.0)
[2025-02-22 02:44] LABS: B-Type Natriuretic Peptide 35 pg/mL (0-100)
[2025-02-22 02:56] LABS: Alanine Aminotransferase < 7 U/L (10-49); Albumin, Serum 4.2 gm/dL (3.4-4.8); Albumin/Globulin Ratio 1.4 (1.2-2.2); Alkaline Phosphatase 155 U/L (46-116); Anion Gap 10 (7-16); Aspartate Amino Transferase 10 U/L (0-34); BUN/Creatinine Ratio 17 Ratio (12-20); Bilirubin,Total 0.3 mg/dL (0.3-1.2); Blood Urea Nitrogen 17 mg/dL (9-23); Calcium 9.5 mg/dL (8.3-10.6); Calcium (Corrected) 9.5 mg/dL (8.5-10.1); Chloride 103 mMol/L (98-107); Estimated Creatinine Clearance 74.5 mL/min (>60); Globulin 2.9 gm/dL (2.3-3.5); Glucose 349 mg/dL (74-106); Osmolality,Calculated 289 (275-295); Potassium 4.1 mMol/L (3.4-5.1); Sodium 137 mMol/L (136-145); Total Protein 7.1 gm/dL (5.7-8.2); Troponin I < 0.020 ng/mL (0.0-0.045); eGFR > 60 See Note
[2025-02-22 03:48] VITALS: BP 156/92; PULSE 75; RESP 20; TEMP 36.9; O2SAT 95
[2025-02-22 05:52] LABS: Troponin I < 0.020 ng/mL (0.0-0.045)
[2025-02-22 06:47] LABS: Collection Type, Urine Clean Catch
[2025-02-22 07:15] VITALS: BP 166/87; PULSE 79; RESP 18; TEMP 36.6; O2SAT 96
[2025-02-22 07:16] LABS: Bilirubin,Urine Negative (Negative); Blood,Urine Negative (Negative); Clarity,Urine Turbid (Clear/Hazy); Color,Urine Lt-Yellow (Lt Yel-Yel); Glucose, Urine 4+ (Negative); Ketones,Urine Negative (Negative); Leukocyte Esterase,Urine Positive (Negative); Nitrite,Urine Positive (Negative); PH,Urine 6.5 (5.0-7.0); Protein,Urine Trace (Neg - Trace); RBC,Urine 4 /hpf (0-3); Specific Gravity,Urine 1.023 (1.001-1.035); Squamous Epithelial Cell,Urine 1 /hpf (0-5); Urobilinogen,Urine Negative mg/dL (0.0-1.0); WBC,Urine 15 /hpf (0-5)
[2025-02-22] MEDS: IBUPROFEN TAB 600 MG TABLET PO (07:18)
[2025-02-22 07:31] LABS: Bacteria,Urine 2+; Culture Indicated,Urine Yes
== END 2025-02-22 07:19 | disposition home or self-care (01) ==
PROVIDERS: Emergency Provider Emergency Medicine; PCP Family Medicine
DX: R07.9 Chest pain, unspecified (principal); M54.2 Cervicalgia; M25.512 Pain in left shoulder; R94.31 Abnormal electrocardiogram [ECG] [EKG]; I10 Essential (primary) hypertension
CPT/HCPCS: 36415; 71046; 80053; 81001; 83880; 84484; 85025; 87077; 87086; 87186; 93005; 99283; J3490; A9270

== ENCOUNTER → 2025-05-18 | Outpatient (CLI) | payer OTHER, MEDICAID, SELFPAY ==
--- NOTE | 2025-05-18 10:26 | XR_ITS ---
Examination: Lumbar spine 3 views Technique one AP lateral coned lateral lower lumbar spine 3 views Date and time: May 18, 2025, 10:40 AM INDICATIONS: Low back pain one week radiating down the right leg. FINDINGS: Prominent osteopenia. Lumbar levoscoliosis 12 degrees Moderate to advanced diffuse lumbar degenerative disc disease, most severe at L1-L2, L5-S1 No lumbar fracture IMPRESSION: Diffuse moderate to advanced lumbar degenerative disc disease with significant spinal stenosis
== END | disposition home or self-care (01) ==
PROVIDERS: Referring Provider Internal Medicine; Visit Provider Internal Medicine
DX: M51.360 Other intervertebral disc degeneration, lumbar region with discogenic back pain only (principal); M48.061 Spinal stenosis, lumbar region without neurogenic claudication
CPT/HCPCS: 72100